=== PATIENT | female | born 1985 | race Caucasian/White ===

== ENCOUNTER 2019-12-20 07:50 | Inpatient (IN) | payer OTHER ==
[~2019-12-20] VITALS: Ht 144.8 cm; Wt 81.2 kg
[2019-12-20] MEDS ORDERED: LACTATED RINGERS 1,000 ML IV SCH (08:15)
[2019-12-20] MEDS ORDERED: CITRIC ACID/SODIUM CITRATE 30 ML UDC PO SCH (08:15)
[2019-12-20 08:38] VITALS: BP 109/61
--- NOTE | 2019-12-20 09:03 | NUR ---
PATIENT HAS BEEN SCREENED AND CATEGORIZED LOW NUTRITION RISK. PATIENT WILL BE SEEN WITHIN 7 DAYS OF ADMISSION. 12/26/[address]
[2019-12-20 09:38] LABS: BASOPHILS % (AUTO) 0.6 % (0.0-2.0); EOSINOPHILS # (AUTO) 0.1 K/uL (0-0.4); EOSINOPHILS % (AUTO) 1.2 % (0.0-4.0); HEMOGLOBIN 12.1 g/dL (12.0-16.0); LYMPHOCYTES # (AUTO) 1.9 K/uL (2.5-16.5); LYMPHOCYTES % (AUTO) 23.7 % (20.5-51.1); MEAN CORPUSCULAR HEMOGLOBIN 28 pg (27-31); MEAN CORPUSCULAR HGB CONC 35 g/dL (33-37); MEAN CORPUSCULAR VOLUME 80.5 fL (80-94); MONOCYTES # (AUTO) 0.6 K/uL (0.8-1.0); MONOCYTES % (AUTO) 7.5 % (1.7-9.3); NEUTROPHILS # (AUTO) 5.3 K/uL (1.8-7.7); PLATELET COUNT (AUTO) 251 K/uL (140-450); RED BLOOD CELL COUNT(AUTO) 4.35 MIL/uL (4.20-5.40); RED CELL DISTRIBUTION WIDTH 15.2 % (11.6-13.7); WHITE BLOOD COUNT (AUTO) 7.9 K/uL (4.8-10.8)
[2019-12-20] MEDS ORDERED: OXYTOCIN 10 UNITS in LACTATED RINGERS 1,000 ML IV SCH (09:41)
[2019-12-20] MEDS ORDERED: METHYLERGONOVINE 0.2 MG/ML AMP IM PRN (09:45)
[2019-12-20] MEDS ORDERED: MEASLES, MUMPS, AND RUBELLA 1 VIAL SQVAC PRN (09:45)
[2019-12-20 10:14] LABS: APPEARANCE,URINE CLEAR (CLEAR); BILIRUBIN,URINE NEGATIVE (NEGATIVE); BLOOD, URINE NEGATIVE (NEGATIVE); COLOR,URINE YELLOW (YELLOW); LEUKOCYTE ESTERASE ,URINE 1+ (NEGATIVE); NITRITE, URINE NEGATIVE (NEGATIVE); PH,URINE 7.5 (5.0-9.0); UGLUCOSE NEGATIVE (NEGATIVE)
[2019-12-20] MEDS ORDERED: ePHEDrine 50 MG/ML VIAL ONE (10:26)
[2019-12-20] MEDS ORDERED: ONDANSETRON 4 MG/2 ML VIAL ONE (10:26)
[2019-12-20 10:44] LABS: RBC,URINE 0-5 /HPF (0-5); WBC,URINE 0-5 /HPF (0-5)
[2019-12-20] MEDS ORDERED: NALOXONE 0.4 MG/ML VIAL IVP PRN ×2 (10:45)
[2019-12-20] MEDS ORDERED: diphenhydrAMINE 50 MG/ML VIAL IVP PRN (10:45)
[2019-12-20] MEDS ORDERED: KETOROLAC 30 MG/ML VIAL IVP PRN (10:45)
[2019-12-20] MEDS ORDERED: OXYTOCIN 20 UNITS in LACTATED RINGERS 1,000 ML IV SCH (10:45)
[2019-12-20] MEDS ORDERED: OXYTOCIN 20 UNITS/LR PREMIX 1,000 ML IV ONE (11:54)
[2019-12-20] MEDS: KETOROLAC 30 MG/ML VIAL IM/IVP SCH (14:38)
[2019-12-20] MEDS ORDERED: CARBOPROST 250 MCG/ML AMP IM PRN (18:45)
[2019-12-20] MEDS ORDERED: PROMETHAZINE 25 MG/ML VIAL IVP PRN (18:45)
[2019-12-21] MEDS: KETOROLAC 30 MG/ML VIAL IM/IVP SCH (00:02)
[2019-12-21] MEDS ORDERED: OXYTOCIN 20 UNITS/LR PREMIX 1,000 ML IV ONE (03:16)
[2019-12-21 08:12] LABS: BASOPHILS # (AUTO) 0.1 K/uL (0.00-0.22); BASOPHILS % (AUTO) 0.8 % (0.0-2.0); EOSINOPHILS # (AUTO) 0.1 K/uL (0-0.4); EOSINOPHILS % (AUTO) 1.1 % (0.0-4.0); HEMATOCRIT 31.2 % (36-48); HEMOGLOBIN 10.8 g/dL (12.0-16.0); LYMPHOCYTES # (AUTO) 1.4 K/uL (2.5-16.5); LYMPHOCYTES % (AUTO) 13.8 % (20.5-51.1); MEAN CORPUSCULAR HEMOGLOBIN 28 pg (27-31); MEAN CORPUSCULAR HGB CONC 35 g/dL (33-37); MONOCYTES # (AUTO) 0.5 K/uL (0.8-1.0); MONOCYTES % (AUTO) 5.3 % (1.7-9.3); NEUTROPHILS # (AUTO) 7.8 K/uL (1.8-7.7); PLATELET COUNT (AUTO) 192 K/uL (140-450); RED BLOOD CELL COUNT(AUTO) 3.89 MIL/uL (4.20-5.40); RED CELL DISTRIBUTION WIDTH 15.5 % (11.6-13.7); WHITE BLOOD COUNT (AUTO) 9.8 K/uL (4.8-10.8)
[2019-12-21] MEDS ORDERED: BISACODYL 10 MG SUPP RC SCH (09:00)
[2019-12-21] MEDS: oxyCODONE/APAP 5/325 MG 1 TAB TAB PO PRN (12:12)
[2019-12-21] MEDS ORDERED: SODIUM PHOSPHATE 118 ML ENEM RC SCH (18:26)
[2019-12-21] MEDS: METOCLOPRAMIDE 10 MG TAB PO SCH (20:29)
[2019-12-21] MEDS: SIMETHICONE 80 MG TAB.CHEW PO SCH (20:29)
[2019-12-22] MEDS ORDERED: METOCLOPRAMIDE 10 MG TAB PO SCH
[2019-12-22] MEDS: oxyCODONE/APAP 5/325 MG 1 TAB TAB PO PRN ×2 (00:16→10:23)
[2019-12-22] MEDS: METOCLOPRAMIDE 10 MG TAB PO SCH ×4 (02:32→23:55)
[2019-12-22] MEDS ORDERED: SIMETHICONE 80 MG TAB.CHEW PO SCH (09:00)
[2019-12-22] MEDS: SIMETHICONE 80 MG TAB.CHEW PO SCH ×3 (09:29→23:55)
[2019-12-22] MEDS ORDERED: SODIUM PHOSPHATE 118 ML ENEM RC SCH (10:00)
[2019-12-22] MEDS ORDERED: CAMERA MC ONE (12:15)
[2019-12-23] MEDS: METOCLOPRAMIDE 10 MG TAB PO SCH (06:00)
[2019-12-23] MEDS ORDERED: CAMERA MC ONE (06:23)
[2019-12-23] MEDS: SIMETHICONE 80 MG TAB.CHEW PO SCH (09:06)
== END 2019-12-23 11:00 | disposition home or self-care (01) | DRG 785 ==
LOC: MLD 07:50 → OBSVTOIN 08:15 → EDBD 08:15 → MFCC 09:20
PROVIDERS: ADMIT Obstetrics & Gynecology; ATTEND Obstetrics & Gynecology
PROC: 0UB70ZZ Excision of Bilateral Fallopian Tubes, Open Approach (ICD-10-PCS; 2019-12-20)
PROC: 10D00Z1 Extraction of Products of Conception, Low, Open Approach (ICD-10-PCS; principal; 2019-12-20 09:30)
DX: O34.211 Maternal care for low transverse scar from previous cesarean delivery (principal); O99.214 Obesity complicating childbirth; E66.9 Obesity, unspecified; Z3A.39 39 weeks gestation of pregnancy; Z37.0 Single live birth; Z30.2 Encounter for sterilization
CPT/HCPCS: 36415; 51702; 81001; 85025; 86592; 86886; 86900; 86901; 87086; 88302; G0378; J0690; J1885; J2405; J2590; J7060; J7120; J8597